=== PATIENT | male | born 1955 | race Caucasian/White ===

== ENCOUNTER 2025-08-06 07:41 | Day surgery (SDC) | payer MEDICARE, SELFPAY ==
[2025-08-02 11:06] VITALS: BMI 32.5
--- NOTE | ~2025-08-06 | XR_ITS ---
XR fluoroscopy no charge Indication: Right intra-articular SI joint steroid injection TECHNIQUE: Fluoroscopy used during Right intra-articular SI joint steroid injection performed by DrBrannon [Johnson Miranda MD] on 08/06/2025. 45 seconds of fluoroscopy with 6 fluoroscopic images captured. FINDINGS: Correlate with procedure note. IMPRESSION: Fluoroscopy used during Right intra-articular SI joint steroid injection. Reviewed, dictated and finalized at location O. H CLERK IMPRESSION: Fluoroscopy used during Right intra-articular SI joint steroid inje ction.
--- OUTSIDE RECORDS SUMMARY | 2025-08-06 08:02 | XMS_ITS | Clinical Summary ---
[facility] Address [address] [place] [address] Care Team Providers Care Inspector Air Carrier Name Role Phone Farrah Hernandez MD Unavailable [phone] Bonnie Rodriges MD Unavailable [phone] Stuart Alexander DO Unavailable [phone] Joey Cleaning DO Primary Care Provider [phone] Stuart Alexander DO Unavailable [phone] Allergies Active Allergy Reactions Criticality Noted Date Comments Nuts Anaphylaxis High 12/13/2018 Peanut Hives Medium Reaction: HIVES Penicillins Hives High 02/03/2011 Reaction: HIVES, childhood reaction Tree Nut Hives Medium Reaction: HIVES Medications metFORMIN (GLUCOPHAGE) 500 mg tablet Take 2 tablets (1,000 mg total) by mouth 2 (two) times a day with meals Active rOPINIRole XL (REQUIP XL) 6 mg tablet extended release 24 hr 24 hr tablet Take 1 tablet (6 mg total) by mouth daily. 30 tablet 6 8 Active Additional Information Patient taking differently:6 mg oralNightly, Informant: Self, Reported on 06/30/2023 albuterol HFA (PROVENTIL HFA,VENTOLIN HFA,PROAIR HFA) 90 mcg/actuation inhaler Inhale 2 puffs every 6 (six) hours as needed for wheezing Active chlorthalidone 25 mg tablet Take 0.5 tablets (12.5 mg total) by mouth daily Active metoprolol tartrate (LOPRESSOR) 25 mg immediate release tablet Take 1 tablet (25 mg total) by mouth 2 (two) times a day Active Mounjaro 10 mg/0.5 mL pen injector Take 10 mg by mouth once a week EVERY Tuesday 3 Active tadalafiL (CIALIS) 20 mg tablet Take 0.5 tablets (10 mg total) by mouth daily For ED 3 Active valsartan (DIOVAN) 80 mg tablet Take 1 tablet (80 mg total) by mouth 2 (two) times a day Active tamsulosin (FLOMAX) 0.4 mg extended release capsule Take 1 capsule (0.4 mg total) by mouth daily Active omeprazole (PriLOSEC) 20 mg capsule Take 1 capsule (20 mg total) by mouth daily 9 Active montelukast (SINGULAIR) 10 mg tablet Take 1 tablet (10 mg total) by mouth nightly Active atorvastatin (LIPITOR) 20 mg tablet Take 1 tablet (20 mg total) by mouth nightly 3 Active triamcinolone (KENALOG) 0.1 % cream Apply 1 g topically 3 (three) times a day as needed for irritation Active ascorbic acid, vitamin C, (VITAMIN C) 1,000 mg CR tablet Take 1 tablet (1,000 mg total) by mouth daily Active magnesium gluconate 200 mg tablet Take 1 tablet (200 mg total) by mouth daily Active vitamin R06-zqars acid 0.5-1 mg tablet Take 1 tablet/capsule by mouth daily Active vitamin D3-vitamin K2 25 mcg (1,000 unit)-90 mcg tablet,disinteg rating Take 1 tablet by mouth daily Active senna-docusate (PERICOLACE) 8.6-50 mg Take 1 tablet by mouth daily 30 tablet 3 Active Additional Information Patient not taking.Reported on 08/25/2023 Eliquis 5 mg tablet Take 1 tablet (5 mg total) by mouth 2 (two) times a day 4 Active gabapentin (NEURONTIN) 300 mg capsule TAKE 1 CAPSULE BY MOUTH AT BEDTIME NEEDED FOR RESTLESS LEG Active sulfamethoxazol e-trimethoprim (Bactrim DS) 800-160 mg per tablet take 1 tablet by oral route every 12 hours for 3 days 8 Active testosterone cypionate, micro (testosterone cyp, micro, bulk,) 100 % powder 0 3 Active testosterone 50 mg/5 gram (1 %) Acti ve testosterone propionate, bulk, powder 0 3 Active testosterone enanthate, bulk, 100 % powder 0 3 Active traMADoL (Ultram) 50 mg tablet take 1-2 tablets by oral route every 6 hours as needed for pain 8 Active meloxicam (MOBIC) 15 mg tabletIndicatio ns:Chronic right shoulder pain,Chronic left shoulder pain TAKE 1 TABLET BY MOUTH EVERY DAY 30 tablet 1 5 Active Active Problems Problem Noted Date Diagnosed Date Arthritis of left shoulder region 05/18/2023 Asthma 02/12/2021 Postlaminectomy syndrome, lumbar region 05/08/20 Overview (05/08/2020): Added automatically from request for surgery [id number] Polycythemia 07/14/2019 Overview (04/14/2023): Last Assessment & Plan: Chronic, uncontrolled. Hgb 19.1 on admission, asymptomatic. Hgb elevated on admission in December 2018. Suspect likely due to his KATHARINE. - Will need outpatient follow up for further evaluation Food in esophagus causing other injury, initial encounter 07/14/2019 Overview (04/14/2023): Last Assessment & Plan: Acute, uncontrolled. History most consistent with uncomplicated food impaction due to ham. Hx of prior food impaction, unknown if required dilation or strictures present. No signs of dehydration at this time. - Admit to med/surg, attending Dr. Reynolds - NPO - GI consult for endoscopic evaluation and retrieval of food bolus - MIVF Obesity 12/14/2018 Diabetes 12/14/2018 Overview (04/14/2023): Last Assessment & Plan: Chronic, patient states prediabetes diagnosis. Most recent A1C one month ago 6.1 (per patient). HgbA1c of 7.0 in hospital making T2DM diagnosis -Discussed weight loss and diet/exercise -SSI while inpatient -Start metformin BID on discharge Sleep apnea 12/14/2018 Paroxysmal atrial fibrillation 12/13/2018 Overview (04/14/2023): Last Assessment & Plan: Acute. Spontaneously resolved. Presents with SOB and chest heaviness. On admission hypertensive. Troponin negative x2. EKG shows no ST changes. CXR shows cardiomegaly. TSH WNL. Source of afib unknown but possibly related to uncontrolled hypertension vs non ischemic cardiac changes. -Admitted to telemetry -Cardiology consulted (Dr. Torres)- appreciate recs -metoprolol 25mg BID -Eliquis 5mg BID -Echo today 12/14 -Consider stress test depending on results Type 2 diabetes mellitus without complications 0 04/24/2018 Essential (primary) hypertension 04/24/2018 Overview (04/14/2023): Last Assessment & Plan: Acute. Recently diagnosed and started on losartan. BP 171/82 on admission with symptoms and signs of fluid overload with pitting edema, s/p IV lasix x1. BP improved to 139/58. -Continue losartan 25mg -Appreciate cardiology recs and begin appropriate medications pending ECHO results Presence of artificial knee joint, bilateral 05/2018 Obesity with body mass index 30 or greater 07/19 Status post total knee replacement 06/16/2017 Diabetic polyneuropathy asso ciated with type 2 diabetes mellitus 02/22/2017 Assessment & Plan (02/23/2017 11:17 AM CDT): Diabetes is improving with lifestyle modifications. Continue current treatment regimen. Regular aerobic exercise. Diabetes will be reassessed in 3 months by PCP. He is encouraged to be active and eat healthy diet. He will take gabapentin 800mg one tablet at 8 am and one at 8 pm. He likely will have improvement is symptoms by the times of his doses. Osteoarthritis of knee 06/17/2014 Chondromalacia of patella 06/17/2014 Restless legs syndrome 11/27/2013 Overview (11/19/2016): Restless leg syndrome Assessment & Plan (02/23/2017 11:18 AM CDT): He will take his ropinirole ER 6 mg dose at 3 pm each day. He will monitor his response with changing his dose time. Paresthesia 11/27/2013 Overview (11/19/2016): Paresthesia Obstructive sleep apnea syndrome 02/28/2012 Restless legs 02/02/2011 Restless legs syndrome 02/02/2011 Overview (04/14/2023): Restless leg syndrome Last Assessment & Plan: He will take his ropinirole ER 6 mg dose at 3 pm each day. He will monitor his response with changing his dose time. Surgical History Surgery Date Site/Laterality Comments JOINT REPLACEMENT Bilateral knee, 2016,2018 SPINE SURGERY 08/15/2011 - 08/14/2012 L3, L4, L5 ROTATOR CUFF REPAIR Right SPINAL CORD STIMULATOR IMPLANT COLONOSCOPY VASECTOMY TONSILLECTOMY CATARACT EXTRACTION Left NASAL ENDOSCOPY Medical History Medical History Date Comments Hx Other Medical spinal stenosis -surgery Hx Other Medical 2 kness surgery s Asthma Asthma Diabetes mellitus Atrial fibrillation (HCC) Sleep apnea not using cpap Restless leg syndrome Awareness under anesthesia Hypertension Hyperlipidemia Allergic rhinitis GERD (gastroesophageal reflux disease) Type 2 diabetes mellitus Skin cancer left hand, remov ed Scratch vanessa top of his right hand ED (erectile dysfunction) Arthritis Spinal cord stimulator status zavala s remote Family History Medical History Relation Name Comments Heart attack Father heart attack; Lung cancer Mother Cancer, lung; Relation Name Status Comments Father Mother Social History Tobacco Use Types Packs/Day Years Used Date Smoking Tobacco: Never Smokeless Tobacco: Never Alcohol Use Standard Drinks/Week Comments Not Currently 0 (1 standard drink = 0.6 oz pur e alcohol) [facility] Utilities Answer Date Recorded In the past 12 months has [employer], gas, oil, or water [employer] threatened to shut off services in your home? No 07/14/2023 Social Connection and Isolation Panel Answer Date Recorded In a typical week, how many times do you talk on the phone with family, friends, or neighbors? More than three times a week 07/14/2023 How often do you get togethe r with friends or relatives? More than three times a week 07/14/2023 How often do you attend chur ch or zoroastrian services? Never 07/14/2023 Do you belong to any clubs o r organizations such as orthodoxy groups, unions, fraternal or athletic groups, or school groups? No 07/14/2023 How often do you attend meet ings of the clubs or organizations you belong to? Never 07/14/2023 Are you , , di vorced, , never , or living with a partner? 07/14/2023 AUDIT-C Answer Date Recorded Q1: How often do you have a drink containing alc ohol? Never 07/13/2023 Q2: How many drinks containi ng alcohol do you have on a typical day when you are drinking? 1 or 2 07/13/2023 Q3: How often do you have six or more drinks on one occasion? Never 07/13/2023 Overall Financial Resource Strain (CARDIA) Answe r Date Recorded How hard is it for you to pa y for the very basics like food, housing, medical care, and heating? Not hard at all 07/14/2023 Hunger Vital Sign Answer Date Recorded Within the past 12 months, y ou worried that your food would run out before you got the money to buy more. Never true 07/14/20 23 Within the past 12 months, t he food you bought just didn't last and you didn't have money to get more. Never true 07/14/2023 PRAPARE - Transportation Answer Date Re corded In the past 12 months, has l ack of transportation kept you from medical appointments or from getting medications? No 06/17 In the past 12 months, has l ack of transportation kept you from meetings, work, or from getting things needed for daily living? No 07/14/2023 Housing Stability Vital Sign Answer Naveen e Recorded In the last 12 months, was t here a time when you were not able to pay the mortgage or rent on time? No 07/14/2023 In the last 12 months, how many places have you lived? 1 07/14/2023 In the last 12 months, was t here a time when you did not have a steady place to sleep or slept in a jail (including now)? No 07/14/2023 Personal Safety Answer Date Recorded Have you ever been in or are you currently in a harmful physical or emotional relationship or is someone making you feel afraid or unsafe? Denies 07/13/2023 Sex and Gender Information Value Date Recorded Sex Assigned at Not on file Legal Sex Male 4:57 PM MELT HOUSE CENTRIFUGAL OPERATOR Gender Identity Not on file Sexual Orientation Not on file Last Filed Vital Signs Vital Sign Reading Time Taken Comments Blood Pressure 108/48 07/14/2023 7:43 AM MELT HOUSE CENTRIFUGAL OPERATOR Pulse 73 07/14/2023 7:43 AM MELT HOUSE CENTRIFUGAL OPERATOR Temperature 36.6 C (97.9 F) 07/14/2023 7:43 AM MELT HOUSE CENTRIFUGAL OPERATOR Respiratory Rate 18 07/14/2023 7:43 AM MELT HOUSE CENTRIFUGAL OPERATOR Oxygen Saturation 95% 07/14/2023 7:43 AM MELT HOUSE CENTRIFUGAL OPERATOR Inhaled Oxygen Concentration - - Weight 111.6 kg (246 lb) 08/25/2023 10:08 AM MELT HOUSE CENTRIFUGAL OPERATOR Height 177.8 cm (5' 10) 08/25/2023 10:08 AM MELT HOUSE CENTRIFUGAL OPERATOR Body Mass Index 35.3 08/25/2023 10:08 AM MELT HOUSE CENTRIFUGAL OPERATOR Plan of Treatment Health Maintenance Due Date Last Done Comments Albumin Creatinine Ratio, Urine 1953 Colon Cancer Screening-Colonoscopy 1953 Depression Screening 1953 Hepatitis C Screening 1953 Dilated Eye Exam 1953 Foot Exam 1953 DTaP/Tdap/Td Vaccine (1 - Tdap) 1964 Hepatitis B Screening 1971 Pneumococcal vaccine 65+ (1 of 2 - PCV) 1972 Zoster Vaccine (1 of 2) 2003 Well Visit 65+ 2018 Hemoglobin A1C 12/29/2023 06/30/2023 Lipid Panel 04/12/2024 04/12/2023, 09/24/2022 Fall Risk Assessment 07/14/2024 07/14/2023 eGFR 07/14/2024 07/14/2023, 06/30/2023 Covid-19 Vaccine (3 - 2024-26 season) 04/15/202510/2020, 08/20/2020 Influenza Vaccine (#1) 2025 05/29/2019, 2016 Medical Devices Implanted Type Area Sql Server Dba Device Identifier Shelf Expiration Date Model / Serial / Lot Pins Right: Shoulder Joint Replacement Bilateral: Knee Spinal Cord Stimulater Back Description:Has remote [employer] 3660 Contrlsys Proclaim Elite 4.95cmx5.55cm 5 Implantable Pulse Tonic - [id number] - [id number] Implanted:Qty: 1 on 05/23/2020 by Farrah Hernandez MD at [facility] Left: Back [employer] [id number] 03/24/2022 3660 CONTRLSYS / [id number] / Biocomposites 620-005 Stimulan Rapid Cure Kit Paste Door To Door Fundraising Collector 5cc 12.5cc Bone Void - [id number] Implanted:Qty: 1 on 05/23/2020 by Farrah Hernandez MD at [facility] N/A: Back [employer] [id number] 12/12/2022 620 -005 / / [id number] [employer] [id number] Octrode 60cm 8 Electrode Lead Percutaneous Kit Neurostimulator - [id number] - [id number] Implanted:Qty: 1 on 05/23/2020 by Farrah Hernandez MD at [facility] N/A: Back [employer] [id number] 12/03/2021 [id number] / [id number] / [employer] 3186ans Octrode 60cm 8 Electrode Lead Percutaneous Kit Neurostimulator - [id number] - [id number] Implanted:Qty: 1 on 05/23/2020 by Farrah Hernandez MD at [facility] N/A: Back [employer] [id number] 12/03/2021 [id number] / [id number] / [employer] Simplex P Radiopaque Full Dose Cement Bone Sterile 6191-1-010 - [id number] Implanted:Qty: 1 on 07/13/2023 by Lino Hutchins MD at [facility] 09/14/2025 6191-1-010 / / [id number] [employer] Stem Humeral Shoulder Reverse Standard Size 10 Identity [id number] - [id number] Implanted:Qty: 1 on 07/13/2023 by Lino Hutchins MD at [facility] Left: Shoulder [employer] [id number] 09/27/2032 [id number] / / [id number] [employer] Head Humeral Adapter Implant Shoulder Reverse Stem Fixed Identity [id number] - [id number] Implanted:Qty: 1 on 07/13/2023 by Lino Hutchins MD at [facility] Left: Shoulder [employer] [id number] 02/19/2033 [id number] / / [id number] [employer] Stem Humeral Adapter Implant Shoulder Reverse 135 Degree Identity [id number] - [id number] Implanted:Qty: 1 on 07/13/2023 by Lino Hutchins MD at [facility] Left: Shoulder [employer] [id number] 03/28/2033 [id number] / / [id number] [employer] Head Humeral Shoulder Reverse Stem Fixed Identity 12z04co [place] [employer]ium [id number] - [id number] Implanted:Qty: 1 on 07/13/2023 by Lino Hutchins MD at [facility] [employer] [id number] 05/10/2032 [id number] / / [id number] [employer] Moodus Post Modular Component Glenoid Sterile Latex Free [id number] - [id number] Implanted:Qty: 1 on 07/13/2023 by Lino Hutchins MD at [facility] Left: Shoulder [employer] [id number] 10/22/2032 [id number] / / [id number] [employer] Moodus 3 Peg Modular Shoulder 4 Component Glenoid Sterile Latex [id number] - [id number] Implanted:Qty: 1 on 07/13/2023 by Lino Hutchins MD at [facility] Left: Shoulder [employer] [id number] 12/03/2026 [id number] / / [id number] Explanted Type Area Sql Server Dba Device Identifier Shelf Expiration Date Model / Serial / Lot [employer] Stem Humeral Adapter Implant Shoulder Reverse 135 Degree Identity [id number] - [id number] Explanted:Qty: 1 on 07/13/2023 by Lino Hutchins MD at [facility] Left: Shoulder [employer] [id number] 05/15/2032 [id number] / / [id number] Procedures Procedure Name Priority Date/Time Associated Diagnosis Comments EGFR Routine 07/14/2023 4:18 AM MELT HOUSE CENTRIFUGAL OPERATOR HEMOGLOBIN A1C Routine 06/30/2023 10:10 AM MELT HOUSE CENTRIFUGAL OPERATOR Arthritis of left shoulder region Preop testing Elevated hemoglobin A1c from Last 3 Months or Most Recently Relevant to Health Maintenance Results * eGFR (07/14/2023 4:18 AM MELT HOUSE CENTRIFUGAL OPERATOR) eGFR 59 mL/min/1. 73 m2 [facility] Comment: Interpretive Data Reference Interval Normal >/= 90 mL/min/1.73m2 Mildly decreased* 60 - 89 mL/min/1.73m2 Mildly to moderately decreased 45 - 59 mL/min/1.73m2 Moderately to severely decreased 30 - 44 mL/min/1.73m2 Severely decreased 15 - 29 mL/min/1.73m2 Kidney Failure < 15 mL/min/1.73m2 *Relative to young adult level Estimated glomerular filtration rate is determined by the 2020 CKD-EPI equation recommended by the National Kidney Foundation (A Unifying Approach to GFR Estimation: Recommendations of the NKF-ASK Task Force on Reassessing the Inclusion of Race in Diagnosing Kidney Disease, JASN 202). The CKD-EPI equation should not be used for patients with unstable renal function and has not been validated in children and those over 70. Current interpretive data was last reviewed 2021. Blood 07/14/2023 4:18 AM MELT HOUSE CENTRIFUGAL OPERATOR 07/14/2023 4:55 AM MELT HOUSE CENTRIFUGAL OPERATOR us Lino Hutchins MD LAB BLOOD ORDERABLES Final Result Performing Organization Address City/[facility] de Phone Number CARMELLA [address] [facility] [place] [address] * (ABNORMAL) Hemoglobin A1c (06/30/2023 10:10 AM MELT HOUSE CENTRIFUGAL OPERATOR) Hgb A1C 5.8(H) 4.0 - 5.6 % CARMELLA Estimated Average Glucose 120 mg/dL [facility] Comment: The ADA recommends reporting an estimated Average Glucose (eAG) with all Hemoglobin A1c results using the equation derived from a study of 507 normal and diabetic adults. Minority populations were underrepresented and children were not included. (Diabetes Care 31:1839-5332, 2008). The eAG is not equivalent to a fasting glucose. Blood 06/30/2023 10:1 0 AM MELT HOUSE CENTRIFUGAL OPERATOR 06/30/2023 10:15 AM MELT HOUSE CENTRIFUGAL OPERATOR Lino Hutchins MD LAB BLOOD ORDERABLES Final Result Performing Organization Address [facility] de Phone Number CARMELLA [address] [place] [address] from Last 3 Months or Most Recently Relevant to Health Maintenance Insurance [facility] MEDICARE MEDICARE [facility] [place] [address] [employer] MEDICARE Advance Directives For more information, please contact: [phone] * Full Code (Latest Code Status on File) Date Activated Date Inactivated Comments 07/13/2023 4:32 PM 07/14/2023 3:20 PM * Full Code Date Activated Date Inactivated Comments 05/23/2020 9:32 AM 05/23/2020 2:43 PM Care Teams Inspector Air Carrier Relationship Specialty Start Date End Date Joey Cleaning DO [address] [place], [place] [address] PCP - General Internal Medicine 06/03/23 Farrah Hernandez MD [address] [place] [address] Surgeon Anesthesiology 05/23/20 Bonnie Rodriges MD [address] [place], [place] [id number] Referring Physician Cardiovascular Disease 05/13/23 Stuart Alexander DO [address] [place], [place] [id number] Referring Physician Internal Medicine 05/13/23 Stuart Alexander DO [address] [facility] [address] [place], [place] [address] Referring Physician Internal Medicine 06/30/23
--- OUTSIDE RECORDS SUMMARY | 2025-08-06 08:02 | XMS_ITS | Encounter Summary ---
Author Organization [facility] Address [address] [place] [address] Care Team Providers Care Grinder Set Up Operator Centerless Name Role Phone Joey Cleaning DO Primary Care Provider [phone] Bonnie Rodriges MD Unavailable [phone] Encounter Details Date Type Department Care Team (Late st Contact Info) Description 12/22/2020 Abstract [facility], [address] [address] Jeffery Christian MA Social History Tobacco Use Types Packs/Day Years Used Date Smoking Tobacco: Never Smokeless Tobacco: Never Alcohol Use Standard Drinks/Week Comments No 0 (1 standard drink = 0.6 oz pur e alcohol) AUDIT-C Answer Date Recorded Frequency of Alcohol Consumption Never 12/13/2018 Average Number of Drinks Not on file 019 Frequency of Binge Drinking Not on file 08/2018 PHQ-2 Answer Date Recorded PHQ-2 Score - If the patient scores above 3, please move on to questions 3-9 0 09/09/2020 Sex and Gender Information Value Date Recorded Sex Assigned at Male 10/24/2024 9:10 AM CDT Legal Sex Male 7:37 PM CDT Gender Identity Not on file Sexual Orientation Not on file Occupation Industry Job Start Date Job End Date Not on file Not on file Not on file Not on file COVID-19 Exposure Response Date Recorded In the last month, have you been in contact with someone who was confirmed or suspected to have Coronavirus / COVID-19? No / Unsure 12/19/2020 9:56 AM CDT documented as of this encounter Functional Status * RETIRED Are you deaf or do you have serious difficulty hearing Answer Date of Assessment Author Status No 12/13/2018 11:25 PM CDT Acti ve * RETIRED Are you blind or do you have serious difficulty seeing, even when wearing glasses? Answer Date of Assessment Author Status No 12/13/2018 11:25 PM CDT Acti ve * Do you have serious difficulty walking or climbing stairs? Answer Date of Assessment Author Status No 12/13/2018 11:25 PM CDT Bonnie Lambert RN Active * Do you have difficulty dressing or bathing? Answer Date of Assessment Author Status No 12/13/2018 11:25 PM CDT Bonnie Lambert RN Active * Because of a physical, mental, or emotional condition, do you have difficulty doing errands alone such as visiting a doctor's office or shopping? Answer Date of Assessment Author Status No 12/13/2018 11:25 PM CDT Bonnie Lambert RN Active documented as of this encounter Mental Status * Because of a physical, mental, or emotional condition, do you have serious difficulty concentrating, remembering, or making decisions? Answer Entry Date Author Status No 12/13/2018 11:25 PM CDT Bonnie Lambert RN Active documented in this encounter Plan of Treatment Upcoming Encounters Date Type Department Care Team (Late st Contact Info) Description 04/18/2026 8:20 AM CDT Office Visit [facility] [address] [place] [phone] Stuart Alexander DO [facility] [address] [place] [address] documented as of this encounter Procedures Procedure Name Priority Date/Time Associated Diagnosis Comments HEMOGLOBIN, GLYCOSYLATED Routine 01/26/2024 FREE T3 Routine 01/26/2024 COMPREHENSIVE METABOLIC PANEL Routine 01/26/2024 LIPID PANEL Routine 01/26/2024 CBC, MANUAL DIFF Routine 01/26/2024 THYROXINE, FREE (FT4) Routine 01/26/2024 THYROID STIM HORMONE TSH Routine 01/26/2024 VITAMIN D, 25 OH Routine 01/26/2024 MAGNESIUM Routine 01/26/2024 HEMOGLOBIN, GLYCOSYLATED Routine 04/12/2023 FREE T3 Routine 04/12/2023 COMPREHENSIVE METABOLIC PANEL Routine 04/12/2023 LIPID PANEL Routine 04/12/2023 CBC, MANUAL DIFF Routine 04/12/2023 THYROXINE, FREE (FT4) Routine 04/12/2023 THYROID STIM HORMONE TSH Routine 04/12/2023 VITAMIN D, 25 OH Routine 04/12/2023 MAGNESIUM Routine 04/12/2023 HEMOGLOBIN, GLYCOSYLATED Routine 09/24/2022 FREE T3 Routine 09/24/2022 COMPREHENSIVE METABOLIC PANEL Routine 09/24/2022 LIPID PANEL Routine 09/24/2022 CBC, MANUAL DIFF Routine 09/24/2022 THYROXINE, FREE (FT4) Routine 09/24/2022 THYROID STIM HORMONE TSH Routine 09/24/2022 VITAMIN D, 25 OH Routine 09/24/2022 MAGNESIUM Routine 09/24/2022 HEMOGLOBIN GLYCOSYLATED A1C Routine 12/09/2021 CORTISOL Routine 08/24/2021 CBC (OUTSIDE LAB) Routine 08/24/2021 FREE T3 Routine 08/24/2021 PROSTATE SPECIFIC ANTIGEN,TOTAL Routine 08/24/2021 COMPREHENSIVE METABOLIC PANEL Routine 08/24/2021 LIPID PANEL Routine 08/24/2021 IRON BINDING TEST Routine 08/24/2021 THYROXINE, FREE (FT4) Routine 08/24/2021 THYROID STIM HORMONE TSH Routine 08/24/2021 VITAMIN D, 25 OH Routine 08/24/2021 MAGNESIUM Routine 08/24/2021 IRON Routine 08/24/2021 FERRITIN Routine 08/24/2021 FOLATE (OUTSIDE LAB) Routine 09/15/2020 CBC (OUTSIDE LAB) Routine 09/15/2020 VITAMIN B-12 Routine 09/15/2020 FREE T3 Routine 09/15/2020 COMPREHENSIVE METABOLIC PANEL Routine 09/15/2020 LIPID PANEL Routine 09/15/2020 IRON BINDING TEST Routine 09/15/2020 HEMOGLOBIN GLYCOSYLATED A1C Routine 09/15/2020 THYROXINE, FREE (FT4) Routine 09/15/2020 THYROID STIM HORMONE TSH Routine 09/15/2020 VITAMIN D, 25 OH Routine 09/15/2020 MAGNESIUM Routine 09/15/2020 IRON Routine 09/15/2020 FERRITIN Routine 09/15/2020 documented in this encounter Results * VITAMIN D, 25 OH (01/26/2024) Pathologist [facility] VITAMIN D 25 HYDROXY S/P/B 59.5 01/26/2024 Default History Genericprovider LABORATORY Final Result * COMPREHENSIVE METABOLIC PANEL (01/26/2024) Pathologist [facility] SODIUM S/P/B 139 GLUCOSE 135 mg/dL AST 29 BUN 30 CREATININE S/P/B 1.01 0.7 - 1.3 CALCIUM S/P/B 9.6 POTASSIUM S/P/B 4.1 CHLORIDE S/P/B 104 ALT 26 GFR ESTIMATE 75 Default History Genericprovider LABORATORY Final Result * LIPID PANEL (01/26/2024) Pathologist [facility] CHOLESTEROL 122.8 TRIGLYCERIDES 208 HDL 34.9 LDL (CALCULATED) 46 NON HDL CHOLESTEROL 88 Default History Genericprovider LABORATORY Final Result * CBC, MANUAL DIFF (01/26/2024) Pathologist [facility] WBC 7.98 HGB 17.8 HCT 52.1 PLT 232 [facility] History Genericprovider LABORATORY Final Result * THYROXINE, FREE (FT4) (01/26/2024) [facility] FREE T4 0.71 [facility] History Genericprovider LABORATORY Final Result * HEMOGLOBIN, GLYCOSYLATED (01/26/2024) [facility] HGB A1C 6.3 % us Default History Genericprovider LABORATORY Final Result * THYROID STIM HORMONE TSH (01/26/2024) [facility] TSH 2.35 Default History Genericprovider LABORATORY Final Result * MAGNESIUM (01/26/2024) [facility] MAGNESIUM 1.6 Default History Genericprovider LABORATORY Final Result * FREE T3 (01/26/2024) [facility] FREE T3 3.71 Default History Genericprovider LABORATORY Final Result * MAGNESIUM (04/12/2023) [facility] MAGNESIUM 1.7 04/12/2023 Default History Genericprovider LABORATORY Final Result * VITAMIN D, 25 OH (04/12/2023) [facility] VITAMIN D 25 HYDROXY S/P/B 66.1 04/12/2023 Result [facility] Result - Final * COMPREHENSIVE METABOLIC PANEL (04/12/2023) [facility] SODIUM S/P/B 136 GLUCOSE 136 mg/dL AST 23 BUN 31.7 CREATININE S/P/B 1.09 0.7 - 1.3 CALCIUM S/P/B 9.5 POTASSIUM S/P/B 4.7 CHLORIDE S/P/B 101 ALT 20 GFR ESTIMATE 68.9 Narrative Resulting Agency Comment Default History Genericprovider LABORATORY Final Result * LIPID PANEL (04/12/2023) [facility] CHOLESTEROL 93 TRIGLYCERIDES 56 HDL 39.6 LDL (CALCULATED) 42 NON HDL CHOLESTEROL 53 Narrative Resulting Agency Comment Default History Genericprovider LABORATORY Final Result * CBC, MANUAL DIFF (04/12/2023) WBC 7.77 HGB 7.6 HCT 53.1 PLT 224 Narrative Resulting Agency Comment Default History Genericprovider LABORATORY Final Result * THYROXINE, FREE (FT4) (04/12/2023) Pathologist [facility] FREE T4 0.9 Narrative Resulting Agency Comment Default History Genericprovider LABORATORY Final Result * HEMOGLOBIN, GLYCOSYLATED (04/12/2023) Pathologist [facility] HGB A1C 5.9 % Narrative Resulting Agency Comment Result [facility] Default History Genericprovider LABORATORY Final Result * THYROID STIM HORMONE, TSH (04/12/2023) Pathologist [facility] TSH 1.56 Narrative Resulting Agency Comment Result [facility] Default History Genericprovider LABORATORY Final Result * FREE T3 (04/12/2023) Pathologist [facility] FREE T3 3.89 Narrative Resulting Agency Comment Result [facility] Default History Genericprovider LABORATORY Final Result * MAGNESIUM (09/24/2022) Pathologist [facility] MAGNESIUM 1.6 09/24/2022 Result [facility] Default History Genericprovider LABORATORY Final Result * VITAMIN D, 25 OH (09/24/2022) Pathologist [facility] VITAMIN D 25 HYDROXY S/P/B 39.8 09/24/2022 Default History Genericprovider LABORATORY Final Result * COMPREHENSIVE METABOLIC PANEL (09/24/2022) [facility] SODIUM S/P/B 137 GLUCOSE 149 mg/dL AST 29.4 BUN 33.8 CREATININE S/P/B 1.18 0.7 - 1.3 CALCIUM S/P/B 10 POTASSIUM S/P/B 4.5 CHLORIDE S/P/B 100 ALT 38.7 GFR ESTIMATE 62.6 Default History Genericprovider LABORATORY Final Result * LIPID PANEL (09/24/2022) Pathologist [facility] CHOLESTEROL 109.4 TRIGLYCERIDES 115 HDL 35.5 LDL (CALCULATED) 51 NON HDL CHOLESTEROL 74 Default History Genericprovider LABORATORY Final Result * THYROXINE, FREE (FT4) (09/24/2022) Pathologist [facility] FREE T4 0.69 Default History Genericprovider LABORATORY Final Result * HEMOGLOBIN, GLYCOSYLATED (09/24/2022) Pathologist [facility] HGB A1C 8 % Result [facility] Default History Genericprovider LABORATORY Final Result * THYROID STIM HORMONE, TSH (09/24/2022) [facility] TSH 1.92 Default History Genericprovider LABORATORY Final Result * FREE T3 (09/24/2022) [facility] FREE T3 3.26 Default History Genericprovider LABORATORY Final Result * CBC, MANUAL DIFF (09/24/2022) [facility] WBC 7.73 HGB 17.8 HCT 53.9 PLT 190 Result [facility] Default History Genericprovider LABORATORY Final Result * HEMOGLOBIN, GLYCOSYLATED (12/09/2021) Pathologist [facility] HGB A1C 6.8 % 12/09/2021 Result [facility] Genericprovider LABORATORY Edited Result - Final * MAGNESIUM (08/24/2021) Pathologist [facility] MAGNESIUM 1.6 08/24/2021 [facility] Abstract LABORATORY Edited Resul t - Final * FREE T3 (08/24/2021) FREE T3 3.34 08/24/2021 us Doc [facility] Abstract LABORATORY Edited Resul t - Final * THYROXINE, FREE (FT4) (08/24/2021) FREE T4 0.68 08/24/2021 us Doc [facility] Abstract LABORATORY Final Result * THYROID STIM HORMONE, TSH (08/24/2021) TSH 3.45 08/24/2021 us Doc [facility] Abstract LABORATORY Final Result * CORTISOL (08/24/2021) CORTISOL 9.92 08/24/2021 us Doc [facility] LABORATORY Final Result * VITAMIN D, 25 OH (08/24/2021) VITAMIN D 25 HYDROXY S/P/B 43.4 08/24/2021 us Doc [facility] Abstract LABORATORY Final Result * FERRITIN (08/24/2021) FERRITIN 90.5 08/24/2021 us Doc [facility] LABORATORY Edited Resul t - Final * PROSTATE SPECIFIC ANTIGEN,TOTAL (08/24/2021) PSA 0.27 08/24/2021 us Doc [facility] LABORATORY Edited Resul t - Final * IRON BINDING TEST (08/24/2021) IRON BINDING CAPACITY 310 08/24/2021 us Doc [facility] LABORATORY Edited Resul t - Final * IRON (08/24/2021) Pathologist [facility] IRON 102 08/24/2021 us Doc [facility] LABORATORY Edited Resul t - Final * LIPID PANEL (08/24/2021) Pathologist [facility] CHOLESTEROL 155 HDL 34.3 TRIGLYCERIDES 102 NON HDL CHOLESTEROL 121 LDL (CALCULATED) 100 08/24/2021 us Doc [facility] LABORATORY Edited Resul t - Final * (ABNORMAL) COMPREHENSIVE METABOLIC PANEL (08/24/2021) Pathologist [facility] SODIUM S/P/B 136 POTASSIUM S/P/B 4.3 CO2 26 CHLORIDE S/P/B 101 GLUCOSE 153 mg/dL CALCIUM S/P/B 9.2 BUN 20.5 CREATININE S/P/B 0.95 0.7 - 1.3 EGFR AFR. AMER. 94.2(A) <=90 EGFR NON-AFR. AMER. 81.9 <=90 ALKALINE PHOSPHATASE S/P/B 39.7 ALT 68.4 AST 46.1 BILIRUBIN TOTAL S/P/B 0.72 ALBUMIN S/P/B 4.27 3.5 - 5.0 TOTAL PROTEIN S/P/B 6.59 08/24/2021 us Doc [facility] Abstract LABORATORY Edited [facility] t - Final * CBC (OUTSIDE LAB) (08/24/2021) Pathologist [facility] WBC 6.46 HGB 18.4 HCT 54.5 PLT 189 08/24/2021 us Doc [facility] Abstract LAB-OUTSIDE/ABSTRACTED Edite d Result - Final * MAGNESIUM (09/15/2020) MAGNESIUM 1.9 09/15/2020 us Doc [facility] LABORATORY Final Result * FREE T3 (09/15/2020) Pathologist [facility] FREE T3 3.18 2.1 - 4.3 09/15/2020 us Doc [facility] LABORATORY Final Result * THYROXINE, FREE (FT4) (09/15/2020) FREE T4 0.69 09/15/2020 us Doc [facility] LABORATORY Final Result * THYROID STIM HORMONE, TSH (09/15/2020) Pathologist [facility] TSH 2.62 09/15/2020 us Doc [facility] LABORATORY Final Result * VITAMIN D, 25 OH (09/15/2020) Pathologist [facility] VITAMIN D 25 HYDROXY S/P/B 38.1 09/15/2020 us Doc [facility] LABORATORY Final Result * HEMOGLOBIN, GLYCOSYLATED (09/15/2020) Pathologist [facility] HGB A1C 7.3 % 09/15/2020 us Doc [facility] LABORATORY Final Result * VITAMIN B-12 (09/15/2020) Pathologist [facility] VITAMIN B12 S/P/B 662 180 - 914 09/15/2020 us Doc [facility] LABORATORY Final Result * FOLATE (OUTSIDE LAB) (09/15/2020) Pathologist [facility] FOLATE 9.72 4 - 20 09/15/2020 us Doc [facility] Abstract LAB-OUTSIDE/ABSTRACTED Final Result * FERRITIN (09/15/2020) Pathologist [facility] FERRITIN 90.8 23.9 - 336.2 09/15/2020 us Doc [facility] LABORATORY Edited Resul t - Final * IRON BINDING TEST (09/15/2020) Pathologist [facility] IRON BINDING CAPACITY 331 250 - 400 09/15/2020 us Doc [facility] LABORATORY Edited Resul t - Final * IRON (09/15/2020) [facility] IRON 127.5 50 - 212 09/15/2020 us Doc [facility] LABORATORY Edited Resul t - Final * LIPID PANEL (09/15/2020) Pathologist [facility] CHOLESTEROL 141.5 HDL 30.9 TRIGLYCERIDES 137 NON HDL CHOLESTEROL 110.6 LDL (CALCULATED) 83 09/15/2020 us Doc [facility] LABORATORY Final Result * (ABNORMAL) COMPREHENSIVE METABOLIC PANEL (09/15/2020) Pathologist [facility] SODIUM S/P/B 137 POTASSIUM S/P/B 4.6 CO2 28 CHLORIDE S/P/B 100 GLUCOSE 139 mg/dL CALCIUM S/P/B 9.4 BUN 26.9 CREATININE S/P/B 0.97 0.7 - 1.3 EGFR AFR. AMER. 93.18(A) <=90 EGFR NON-AFR. AMER. 80.4 <=90 ALKALINE PHOSPHATASE S/P/B 42 ALT 45.7 AST 32.9 BILIRUBIN TOTAL S/P/B 0.76 ALBUMIN S/P/B 4.49 3.5 - 5.0 TOTAL PROTEIN S/P/B 7.08 GLOBULIN 2.59 09/15/2020 us Doc [facility] LABORATORY Final Result * CBC (OUTSIDE LAB) (09/15/2020) WBC 6.42 HGB 18.5 HCT 55 PLT 187 09/15/2020 us Doc [facility] Abstract LAB-OUTSIDE/ABSTRACTED Final Result documented in this encounter Visit Diagnoses Not on filedocumented in this encounter Care Teams Grinder Set Up Operator Centerless Relationship Specialty Start Date End Date Joey Cleaning DO [address] [place] [address] PCP - General INTERNAL MEDICINE 12/13/18 Bonnie Rodriges MD [facility] [address] [place] [address] [place] Template Worker INTERVENTIONAL CARDIOLOGY 01/22/19 documented as of this encounter
--- OUTSIDE RECORDS SUMMARY | 2025-08-06 08:02 | XMS_ITS | Clinical Summary ---
Author Organization [facility] Address [address] [place] [address] Phone Care Team Providers Care Violin Repairer Name Role Phone Joey Cleaning DO Primary Care Provider Allergies Active Allergy Reactions Criticality Noted Date Comments Penicillins Hives High 02/03/2011 Medications ropinirole (REQUIP) 2 mg Oral Tab Take 2 mg by mouth daily at bedtime. 1 Active budesonide-form oterol (SYMBICORT) 160-4.5 mcg/Actuation Inhalation HFAA Take 2 Puffs by inhalation 2 times daily. Active OMEPRAZOLE (PRILOSEC ORAL) Take by mouth. Active PHENYLEPHRINE/H YDROCODONE/CP (HYDROCODONE CP ORAL) Take by mouth. Activ e Social History Tobacco Use Types Packs/Day Years Used Date Smoking Tobacco: Never Smokeless Tobacco: Never Alcohol Use Standard Drinks/Week Comments Yes 0 (1 standard drink = 0.6 oz pur e alcohol) moderatly Sex and Gender Information Value Date Recorded Sex Assigned at Not on file Legal Sex Male 6:02 AM [employer] Gender Identity Not on file Sexual Orientation Not on file Last Filed Vital Signs Vital Sign Reading Time Taken Comments Blood Pressure 117/65 03/07/2011 3:51 AM CDT Pulse 85 03/07/2011 3:51 AM CDT Temperature 36.7 C (98.1 F) 03/07/2011 12:35 AM CDT Respiratory Rate 20 03/07/2011 3:51 AM CDT Oxygen Saturation 99% 03/07/2011 3:51 AM CDT Inhaled Oxygen Concentration - - Weight 120.2 kg (265 lb) 02/25/2011 12:59 PM CDT Height 180.3 cm (5' 11) 02/25/2011 12:59 PM CDT Body Mass Index 36.96 02/25/2011 12:59 PM CDT Plan of Treatment Health Maintenance Due Date Last Done Comments DTAP/TDAP/TD VACCINES (1 - Tdap) 1972 COLORECTAL SCREENING 1998 Colorectal Cancer Screening 1998 FIT-DNA Q 3 years 1998 FIT/FOBT Q 1 year 1998 Flex Sig/CT Colonography Q 5 years 1998 PNEUMOCOCCAL VACCINE 50+ YEARS (1 of 1 - PCV) 07/11/20 03 ZOSTER VACCINE (1 of 2) 2003 INFLUENZA VACCINE (#1) 2025 RSV VACCINE (60+ or ) (1 - 1-dose 75+ series) [address] [place] [address] [facility] [employer]/TRUE BLUE PPO Advance Directives For more information, please contact: [phone] * Full Code (Latest Code Status on File) Date Activated Date Inactivated Comments 02/25/2011 12:49 PM 02/26/2011 2:03 AM * Full Code Date Activated Date Inactivated Comments 02/04/2011 2:27 AM 02/04/2011 8:16 AM Care Teams Violin Repairer Relationship Specialty Start Date End Date Joey Cleaning DO PCP - General 07/31/15
--- OUTSIDE RECORDS SUMMARY | 2025-08-06 08:02 | XMS_ITS | Patient Health Record ---
Author Organization [facility] Address [address] [place] [address] Care Team Providers Care Heel Layer Name Role Phone Joey Cleaning D.O. Primary Care Provider Nya jacob Fredy Mcgee Unavailable [phone] Allergies Allergen (clinical drug ingredient) Drug/Non Drug Allergy documented on EMR Reaction Allergy Type Onset Date Status Penicillin Unknown Drug Allergy Active Reason For Referral No Information Medications Medication SIG (Take, Route, Frequency, Duration) Notes Start Date End Date Status metFORMIN HCl Active Mounjaro Active Valsartan Active Metoprolol Succinate ER Active Svewepca-Pvlargyee-Lsfakkj h 0.1 % Suspension 1-2 drops to affected toe(s) until healed topical QD; Duration: 14 days Active Dpmlcnlp-Pjoridbla-Sxvhjsk h 0.1 % Suspension 1-2 drops to affected toe(s) until healed topical QD; Duration: 14 days Active Eliquis Active rOPINIRole HCl Activ e Plan Of Treatment No Information Insurance Providers Payer Name Payer Address Payer Phone Subscriber Number Group Number Insured Name Patient Relationship to Insured Coverage Start Date Coverage End Date R [address] [address] [place] [address] [id number] Aubrey Johnson Self - patient is the insured Medical (General) History Medical History History ICD Code A-fib Arthritis Cancer Pneumonia Diabetes Surgical History Surgery Date(Month/Year)
--- OUTSIDE RECORDS SUMMARY | 2025-08-06 08:02 | XMS_ITS | Clinical Summary ---
Author Organization [facility] Address [address] [place] [address] Care Team Providers Care Chiller Operator Name Role Phone Joey Cleaning DO Primary Care Provider [phone] Bonnie Rodriges MD Unavailable [phone] Allergies Active Allergy Reactions Criticality Noted Date Comments Nuts Anaphylaxis High 12/13/2018 Penicillins Hives 12/13/2018 Tree Extract Hives High 04/10/2018 Hives and swollen throat as a child, testing showed allergy to ALL Tree nuts and mildly to peanuts Medications tadalafil (CIALIS) 10 MG tablet Take 1 tablet (10 mg total) by mouth daily as needed for Erectile Dysfunction. Active vitamin C 1000 MG tablet Take 1 tablet (1,000 mg total) by mouth daily. Active omeprazole 20 MG capsule Take 1 capsule (20 mg total) by mouth daily. 019 Active CPAP DEVICE, DME,Indications :KATHARINE (obstructive sleep apnea) Auto CPAP, 10-16 cm, use while sleeping 1 Device 1 019 Active Respiratory Therapy Supplies (FLUTTER) DeviceIndicatio ns:Cough 1 puff by Does not apply route 2 (two) times a day. 1 Device 6 021 Active tamsulosin (FLOMAX) 0.4 MG Cap Take 1 capsule (0.4 mg total) by mouth nightly at bedtime. 023 Active Testosterone Propionate Powder 023 Active metFORMIN (GLUCOPHAGE) 500 MG tablet Take 2 tablets (1,000 mg total) by mouth 2 (two) times daily. 60 tablet 023 Active montelukast (SINGULAIR) 10 MG tabletIndicatio ns:Allergic rhinitis, unspecified seasonality, unspecified trigger TAKE 1 TABLET BY MOUTH EVERYDAY AT BEDTIME 30 tablet 8 023 Active gabapentin (NEURONTIN) 300 MG capsule TAKE 1 CAPSULE BY MOUTH EVERY DAY AT BEDTIME NEEDED FOR RESTLESS LEG(S) 025 Active rOPINIRole XL (REQUIP XL) 6 MG 24 hr tablet Take 1 tablet (6 mg total) by mouth daily. 024 Active Tirzepatide (MOUNJARO) 15 MG/0.5ML Solution Pen-injector INJECT 15 MG (0.5 ML) SUBCUTANEOUSLY WEEKLY 024 Active metoprolol tartrate (LOPRESSOR) 25 MG tablet TAKE 0.5 TABLETS BY MOUTH 2 TIMES DAILY. 90 tablet 1 025 Active albuterol sulfate HFA 108 (90 Base) MCG/ACT inhalerIndicati ons:Mild intermittent asthma without complication (HHS/HCC) INHALE 2 PUFFS INTO THE LUNGS EVERY 6 HOURS NEEDED FOR WHEEZE 8.5 g 5 025 Active apixaban (ELIQUIS) 5 MG tablet TAKE 1 TABLET BY MOUTH TWICE A DAY 180 tablet 025 Active valsartan (DIOVAN) 80 MG tablet TAKE 1 TABLET BY MOUTH TWICE A DAY 180 tablet 1 025 Active valsartan (DIOVAN) 80 MG tablet TAKE 1 TABLET BY MOUTH TWICE A DAY 180 tablet 1 025 2024 Discontinued Active Problems Problem Noted Date Diagnosed Date Asthma 02/12/2021 Food in esophagus causing other injury, initial encounter 07/14/2019 Assessment & Plan (07/14/2019 9:19 AM ZONE MANAGER): Acute, uncontrolled. History most consistent with uncomplicated food impaction due to ham. Hx of prior food impaction, unknown if required dilation or strictures present. No signs of dehydration at this time. - Admit to med/surg, attending Dr. Reynolds - NPO - GI consult for endoscopic evaluation and retrieval of food bolus - MIVF Polycythemia 07/14/2019 Assessment & Plan (07/14/2019 9:22 AM ZONE MANAGER): Chronic, uncontrolled. Hgb 19.1 on admission, asymptomatic. Hgb elevated on admission in December 2018. Suspect likely due to his KATHARINE. - Will need outpatient follow up for further evaluation Essential (primary) hypertension 12/14/2018 Assessment & Plan (12/14/2018 7:49 AM CDT): Acute. Recently diagnosed and started on losartan. BP 171/82 on admission with symptoms and signs of fluid overload with pitting edema, s/p IV lasix x1. BP improved to 139/58. -Continue losartan 25mg -Appreciate cardiology recs and begin appropriate medications pending ECHO results Diabetes 12/14/2018 Assessment & Plan (12/14/2018 7:47 AM CDT): Chronic, patient states prediabetes diagnosis. Most recent A1C one month ago 6.1 (per patient). HgbA1c of 7.0 in hospital making T2DM diagnosis -Discussed weight loss and diet/exercise -SSI while inpatient -Start metformin BID on discharge Obesity 12/14/2018 Sleep apnea 12/14/2018 Paroxysmal atrial fibrillation 12/13/2018 Assessment & Plan (12/14/2018 7:45 AM CDT): Acute. Spontaneously resolved. Presents with SOB and [...] 12/14 -Consider stress test depending on results Status post total knee replacement 04/20/2018 Diabetic polyneuropathy asso ciated with type 2 diabetes mellitus 02/22/2017 Overview (02/12/2021): Last Assessment & Plan: Diabetes is improving with lifestyle modifications. Continue current treatment regimen. Regular aerobic exercise. Diabetes will be reassessed in 3 months by PCP. He is encouraged to be active and eat healthy diet. He will take gabapentin 800mg one tablet at 8 am and one at 8 pm. He likely will have improvement is symptoms by the times of his doses. Restless legs syndrome 02/02/2011 Overview (02/12/2021): Restless leg syndrome Last Assessment & Plan: He will take his ropinirole ER 6 mg dose at 3 pm each day. He will monitor his response with changing his dose time. Encounters Date Type Department Care Team Description 07/18/2025 8:18 AM ZONE MANAGER - 07/18/2025 11:59 PM [facility] Hospital Encounter [facility] [address] [place] [address] Duke Pierre, MILK DELIVERER Discharge Disposition: Home or Self Care (Routine Discharge) 07/18/2025 8:11 AM ZONE MANAGER - 07/18/2025 8:17 AM [facility] Hospital Encounter [facility] Open MRI [address] [place] [address] Duke Pierre, MILK DELIVERER Discharge Disposition: Home or Self Care (Routine Discharge) 07/18/2025 Travel 07/09/2025 Pre-Procedure Call [facility] [place]ventional [place] [address] Aneta Cronin RN 07/08/2025 Telephone [place] [facility], [facility] [address] [place] [address] Bonnie Rodriges MD Surgical Clearance from Last 3 Months Immunizations Immunization Administration Dates Next Due Flucelvax 6 Months+ (Prefilled Syringe) 05/29/20 19 MODERNA COVID-19 (12+) MRNA, LNP-S, PF, 100 MCG/ 0.5 ML DOSE 09/17/2020,08/20/2020 Family History Medical History Relation Comments Heart Attack Father Heart Disease Father from this Hypertension Father Cancer Mother Lung cancer Lung Cancer Mother Heart Attack Paternal Grandfather Relation Status Comments Father Mother Paternal Grandfather Social History Tobacco Use Types Packs/Day Years Used Date Smoking Tobacco: Never Smokeless Tobacco: Never Tobacco Cessation:Counseling Given: Yes Alcohol Use Standard Drinks/Week Comments Not Currently 3.3 (1 standard drink = 0.6 oz p ure alcohol) Rarely consume AUDIT-C Answer Date Recorded Frequency of Alcohol Consumption Never 12/13/2018 Average Number of Drinks Not on file 019 Frequency of Binge Drinking Not on file 08/2018 PHQ-2 Answer Date Recorded Patient Health Questionnaire-2 Score 0 04/18/2025 Sex and Gender Information Value Date Recorded Sex Assigned at Male 10/24/2024 9:10 AM CDT Legal Sex Male 7:37 PM CDT Gender Identity Not on file Sexual Orientation Not on file Occupation Industry Job Start Date Job End Date Not on file Not on file Not on file Not on file Last Filed Vital Signs Vital Sign Reading Time Taken Comments Blood Pressure 161/91 04/18/2025 8:31 AM CDT Pulse 72 04/18/2025 8:15 AM CDT Temperature 37.1 C (98.8 F) 12/16/2022 8:15 AM CDT Respiratory Rate 16 04/18/2025 8:15 AM CDT Oxygen Saturation 94% 04/18/2025 8:15 AM CDT ra Inhaled Oxygen Concentration - - Weight 106.6 kg (235 lb) 04/18/2025 8:15 AM CDT Height 180.3 cm (5' 11) 04/18/2025 8:15 AM CDT Body Mass Index 32.78 04/18/2025 8:15 AM CDT Plan of Treatment Upcoming Encounters Date Type Department Care Team (Late st Contact Info) Description 04/18/2026 8:20 AM CDT Office Visit [facility] Multispecialty Care - [facility] [address] [facility] [address] [place] [id number] Stuart Alexander DO [address] [facility] [address] [place] [address] Health Maintenance Due Date Last Done Comments Colorectal Cancer Screening Colonoscopy (10 Years) 1955 Kidney Health Evaluation 1955 Diabetes: Retinopathy Eye Exam 1971 Hepatitis C 1973 Annual Medicare Wellness Visit 2018 Pneumococcal Vaccine: 50+ Years (2 of 2 - PPSV23, PCV20, or PCV21) 05/20/2021 03/25/2021 Hemoglobin A1C 07/27/2024 01/26/2024, 06/15, 04/12/2023, Additional history exists Lipid Panel 01/25/2025 01/26/2024, 03/16, 09/24/2022, Additional history exists COVID-19 Vaccine ( season) 2025 02/18/2023, 06/05/2022, 11/28/2021, Additional history exists Influenza Adult (#1) 2025 05/11/2024, 05/29/2019, 06/18/2017 DTaP, Tdap and Td Vaccines (2 - Td or Tdap) 05/14/2034 05/14/2024 Zoster Vaccines Completed 02/18/2023, 03/11/2022 RSV Immunization or 60+ Years Completed 05/14/2024 PHQ-2 (Physician [place]) Completed 04/18/2025 Hepatitis A Vaccines Aged Out No long er eligible based on patient's age to complete this topic Meningococcal B Vaccine Aged Out No l onger eligible based on patient's age to complete this topic Meningococcal Vaccine Aged Out No july edelmira eligible based on patient's age to complete this topic RSV Immunizations Under 20 Months Aged Out No longer eligible based on patient's age to complete this topic Medical Devices Implanted Type Area Fleet Maintenance Manager Device Identifier Shelf Expiration Date Model / Serial / Lot Stimulator Lead Implant ( 2 Leads)- 020 Implanted:Qty : 2 on 05/23/2020 by Farrah Hernandez MD Lead Implant Spine Thoracic [employer] 3186 / / Stimulator Implant-2019 Implanted:04/2020 by Farrah Hernandez MD (Quantity not on file) Stimulator Implant N/A: Thoracic [employer] SPINE MODEL [id number] ID NUMBER [id number] / [id number] / Description:MODEL #3186 SERI AL NUMBERS [id number] AND [id number]--[id number] T 7 --[employer] TECH SUPPORT #[id number] MR CONDITIONAL AT 1.5 T ONLY, NEED REMOTE TO DO IMPEDANCE CHECK AND TURN OFF STIMULATION, FOLLOW SCAN CONDITIONS IN MOST RECENT MRI TECHNICAL MANUAL Procedures Procedure Name Priority Date/Time Associated Diagnosis Comments MRI LUMB SPINE WO CON Routine 07/18/2025 9:32 AM ZONE MANAGER Dorsalgia, unspecified Radiculopathy, lumbar region Spondylosis without myelopathy or radiculopathy, lumbar region Spinal stenosis, lumbar region without neurogenic claudication XR ABD AP+LAT STAT 07/18/2025 8:42 AM ZONE MANAGER Encounter for imaging to screen for metal prior to MRI LIPID PANEL Routine 01/26/2024 HEMOGLOBIN, GLYCOSYLATED Routine 01/26/2024 from Last 3 Months or Most Recently Relevant to Health Maintenance Results * MRI LUMB SPINE WO CON (07/18/2025 9:32 AM ZONE MANAGER) Anatomical Region Laterality Modality Spine Magnetic Resonan ce 07/22/2025 10:3 2 AM ZONE MANAGER Impressions 07/22/2025 10:36 AM ZONE MANAGER IMPRESSION: Moderate multilevel lumbar spondylosis greatest at L2-3, as described above. Ordered By: DUKE PIERRE Interpreted By: Russell Rodriguez MD, 07/22/2025 10:32 AM Narrative 07/22/2025 10:36 AM ZONE MANAGER [facility] [place] [address] Examination: MRI LUMB SPINE WO CON, 07/18/2025 9:02 AM. Technique: Multiplanar multisequence magnetic resonance images of the lumbar spine were obtained without intravenous contrast. Clinical history: Dorsalgia, radiculopathy, lumbar region, Spondylosis without myelopathy or radiculopathy, lumbar region, Spinal stenosis, lumbar region without neurogenic claudication Comparison: Abdominal radiographs 07/18/2025 Findings: There are 5 nonrib-bearing lumbar-type vertebral bodies. The lumbar vertebral bodies and facets are otherwise well aligned. There is 0.4 cm of retrolisthesis of L1 on L2. There is 0.5 cm of retrolisthesis of L2 on L3. There is 0.3 cm of retrolisthesis of L5 on S1. There is intervertebral disc height loss at T12-L1, L1-2, L2-3 and L5- S1 with endplate degenerative changes at these levels. Posterior fusion of L3-5. Partially visualized spinal cord stimulator leads extending into the T11-12 dorsal epidural fat with surrounding susceptibility (best seen on series 6 image 10). T10-11: Disc bulge with posterior endplate marginal osteophytes impress the ventral thecal sac. Moderate spinal canal stenosis. Facet joint hypertrophy. At least moderate bilateral neural foraminal stenosis. T11-12: No significant spinal canal stenosis. Facet joint hypertrophy. Mild left neural foraminal stenosis. No right neural foraminal stenosis. T12-L1: Disc bulge impressing the ventral thecal sac. Mild to moderate spinal canal stenosis. Moderate facet hypertrophy. Mild left neural foraminal stenosis. Mild to moderate right neural foraminal stenosis. L1-2: Disc bulge impressing the ventral thecal sac. Mild to moderate spinal canal stenosis. Moderate to marked facet hypertrophy. Moderate to severe right neural foraminal stenosis. Mild to moderate left neural foraminal stenosis. L2-3: Disc bulge impressing the ventral thecal sac. Severe spinal canal stenosis. Marked facet hypertrophy. Moderate left neural foraminal stenosis. Mild to moderate right neural foraminal stenosis. L3-4: Moderate facet hypertrophy. Mild spinal canal stenosis. Mild bilateral neural foraminal stenosis. L4-5: No significant spinal canal stenosis. Posterior decompression. Moderate facet hypertrophy. Moderate left neural foraminal stenosis. Mild to moderate right neural foraminal stenosis. L5-S1: No significant spinal canal stenosis. Moderate facet hypertrophy. Moderate to severe left neural foraminal stenosis. Moderate right neural foraminal stenosis. Procedure Note Russell Rodriguez MD - 07/22/2025 [address] [place] [address] Examination: MRI LUMB SPINE WO CON, 07/18/2025 9:02 AM. Technique: Multiplanar multisequence magnetic resonance images of thelumbar spine were obtained without intravenous contrast. Clinical history: Dorsalgia, radiculopathy, lumbar region, Spondylosiswithout myelopathy or radiculopathy, lumbar region, Spinal stenosis,lumbar region without neurogenic claudication Comparison: Abdominal radiographs 07/18/2025 Findings: There are 5 nonrib-bearing lumbar-type vertebral bodies. The lumbarvertebral bodies and facets are otherwise well aligned. There is 0.4 cm ofretrolisthesis of L1 on L2. There is 0.5 cm of retrolisthesis of L2 on L3.There is 0.3 cm of retrolisthesis of L5 on S1. There is intervertebraldisc height loss at T12-L1, L1-2, L2-3 and L5-S1 with endplatedegenerative changes at these levels. Posterior fusion of L3-5. Partiallyvisualized spinal cord stimulator leads extending into the T11-12 dorsalepidural fat with surrounding susceptibility (best seen on series 6 image10). T10-11: Disc bulge with posterior endplate marginal osteophytes impressthe ventral thecal sac. Moderate spinal canal stenosis. Facet jointhypertrophy. At least moderate bilateral neural foraminal stenosis. T11-12: No significant spinal canal stenosis. Facet joint hypertrophy.Mild left neural foraminal stenosis. No right neural foraminal stenosis. T12-L1: Disc bulge impressing the ventral thecal sac. Mild to moderatespinal canal stenosis. Moderate facet hypertrophy. Mild left neuralforaminal stenosis. Mild to moderate right neural foraminal stenosis. L1-2: Disc bulge impressing the ventral thecal sac. Mild to moderatespinal canal stenosis. Moderate to marked facet hypertrophy. Moderate tosevere right neural foraminal stenosis. Mild to moderate left neuralforaminal stenosis. L2-3: Disc bulge impressing the ventral thecal sac. Severe spinal canalstenosis. Marked facet hypertrophy. Moderate left neural foraminalstenosis. Mild to moderate right neural foraminal stenosis. L3-4: Moderate facet hypertrophy. Mild spinal canal stenosis. Mildbilateral neural foraminal stenosis. L4-5: No significant spinal canal stenosis. Posterior decompression.Moderate facet hypertrophy. Moderate left neural foraminal stenosis. Mildto moderate right neural foraminal stenosis. L5-S1: No significant spinal canal stenosis. Moderate facet hypertrophy.Moderate to severe left neural foraminal stenosis. Moderate right neuralforaminal stenosis. IMPRESSION: Moderate multilevel lumbar spondylosis greatest at L2-3, as describedabove. Ordered By: DUKE PIERRE Interpreted By: Russell Rodriguez MD, 07/22/2025 10:32 AM Duke Pierre MILK DELIVERER MRI Final Result * XR ABD AP+LAT (07/18/2025 8:42 AM ZONE MANAGER) Anatomical Region Laterality Modality Abdomen Radiographic Brandy ging 07/18/2025 8:51 AM ZONE MANAGER Impressions 07/18/2025 8:59 AM ZONE MANAGER IMPRESSION: 1. Implanted device in the left buttock region with intact leads entering the spinal canal at T11 level and extending superiorly to the T6 level. 2. Fracture of one of the fixation screws at L4 level. Ordered By: DUKE PIERRE Interpreted By: Paul Fleming, 07/18/2025 8:51 AM Narrative 07/18/2025 8:59 AM ZONE MANAGER [address] [address] IMAGING STUDIES: XR ABD AP+LAT DATE: 07/18/2025 8:30 AM HISTORY: Check for abandoned leads and Stimulator placement 70-year-old male. Outpatient. Planned MRI lumbar spine today. Evaluate stimulator and leads prior to MRI. COMPARISON: Chest portable 12/13/2018. DISCUSSION: AP and lateral views from the mid chest to the lower pelvis on 4 total images. Implanted stimulator device in the left buttock region with leads extending superiorly. Loop in the superficial soft tissues of the back at approximately L3-4 level with leads in extending superiorly to enter the spinal canal at approximately superior T12 level and tip of the leads at T6 level. Leads are intact. Bilateral posterior fusion rods spanning L3-L5 levels with transpedicular fixation screws at each level. On lateral views, there is fracture of one of the fixation screws near the rozina at L4 level. Grade 1 anterior listhesis of L1 relative to T12, L2 relative to L1, and L3 relative to L2. Degenerative disc disease with minimal disc space remaining and sclerotic changes and hypertrophic osteophytes at the endplates at T12-L1, L1-2, and L3-4 levels greater than at L5-S1 level. Degenerative changes at the sacroiliac joints and hips. Enthesopathy at the iliac bones. Nonobstructive bowel gas pattern. No acute opacity in the lung bases. Procedure Note Paul Fleming MD - 07/18/2025 [facility] [address] [place] [address] IMAGING STUDIES: XR ABD AP+LATDATE: 07/18/2025 8:30 AM HISTORY: Check for abandoned leads and Stimulator [id number] male. Outpatient. Planned MRI lumbar spine today. Evaluatestimulator and leads prior to MRI. COMPARISON: Chest portable 12/13/2018. DISCUSSION: AP and lateral views from the mid chest to the lower pelvis on 4 totalimages. Implanted stimulator device in the left buttock region with leadsextending superiorly. Loop in the superficial soft tissues of the back atapproximately L3- 4 level with leads in extending superiorly to enter thespinal canal at approximately superior T12 level and tip of the leads atT6 level. Leads are intact. Bilateral posterior fusion rods spanning L3-L5 levels with transpedicularfixation screws at each level. On lateral views, there is fracture of oneof the fixation screws near the rozina at L4 level. Grade 1 anteriorlisthesis of L1 relative to T12, L2 relative to L1, and L3 relative to L2.Degenerative disc disease with minimal disc space remaining and scleroticchanges and hypertrophic osteophytes at the endplates at T12-L1, L1-2, andL3-4 levels greater than at L5-S1 level. Degenerative changes at the sacroiliac joints and hips. Enthesopathy atthe iliac bones. Nonobstructive bowel gas pattern. No acute opacity in the lung bases. IMPRESSION: 1. Implanted device in the left buttock region with intact leads enteringthe spinal canal at T11 level and extending superiorly to the T6 level. 2. Fracture of one of the fixation screws at L4 level. Ordered By: DUKE PIERRE Interpreted By: Paul Fleming, 07/18/2025 8:51 AM us Duke Pierre MILK DELIVERER GENERAL IMAGING Final Result * HEMOGLOBIN, GLYCOSYLATED (01/26/2024) HGB A1C 6.3 % us Default History Genericprovider LABORATORY Final Result * LIPID PANEL (01/26/2024) CHOLESTEROL 122.8 TRIGLYCERIDES 208 HDL 34.9 LDL (CALCULATED) 46 NON HDL CHOLESTEROL 88 us Default History Genericprovider LABORATORY Final Result from Last 3 Months or Most Recently Relevant to Health Maintenance Insurance MEDICARE Advance Directives * Full Code (Latest Code Status on File) Date Activated Date Inactivated Comments 07/14/2019 8:41 AM 07/14/2019 8:32 PM * Full Code Date Activated Date Inactivated Comments 12/13/2018 11:38 PM 12/14/2018 3:40 PM * Full Code Date Activated Date Inactivated Comments 12/13/2018 11:22 PM 12/13/2018 11:38 PM Care Teams Chiller Operator Relationship Specialty Start Date End Date Joey Cleaning DO [address] [facility] [address] [place] [address] PCP - General INTERNAL MEDICINE 12/13/18 Bonnie Rodriges MD [facility]. [facility] [address] [place] [address] [place] Field Installer INTERVENTIONAL CARDIOLOGY 01/22/19
--- OUTSIDE RECORDS SUMMARY | 2025-08-06 08:02 | XMS_ITS | Encounter Summary ---
Author Organization [facility] Address [facility] [place] [address] Care Team Providers Care Office Clinician Name Role Phone Joey Cleaning DO Primary Care Provider [phone] Bonnie Rodriges MD Unavailable [phone] Encounter Details Date Type Department Care Team (Late st Contact Info) Description 02/09/2023 [employer] Message Enc [facility] Medical [facility] - [facility] [address] [place], [place] [address] GREE, [facility] Provider Air Quality Message Social History Tobacco Use Types Packs/Day Years [...] please move on to questions 3-9 0 02/12/2021 Sex and Gender Information Value Date Recorded Sex Assigned at Male 10/24/2024 9:10 AM CDT Legal Sex Male 7:37 PM CDT Gender Identity Not on file Sexual Orientation Not on file Occupation Industry Job Start Date Job End Date Not on file Not on file Not on file Not on file documented as of this encounter Functional Status [...] Description 04/18/2026 8:20 AM CDT Office Visit [facility] Medical [facility] Multispecialty Care - [facility] [address] [facility] [place] [address] Stuart Alexander DO [address] [place], [place] [id number] documented as of this encounter Visit Diagnoses Not on filedocumented in this encounter Additional Health Concerns Assessment Noted Time PHQ-9 Depression Total Score: 0 02/13/20 21 7:20 AM CDT documented as of this encounter Care Teams Office Clinician Relationship Specialty Start Date End Date Joey Cleaning DO [address] [facility] [address] [place] [address] PCP - General INTERNAL MEDICINE 12/13/18 Bonnie Rodriges MD [address] [facility] [facility] [place] [address] [employer]os[employer] Mixer Operator INTERVENTIONAL CARDIOLOGY 01/22/19 documented as of this encounter
--- OUTSIDE RECORDS SUMMARY | 2025-08-06 08:02 | XMS_ITS | Encounter Summary ---
Author Organization [facility] Address [address] [place] [address] Care Team Providers Care Dry Kiln Loader Name Role Phone Unavailable Primary Care Provider Unavailabl e Encounter Details Date Type Department Care Team (Late st Contact Info) Description 02/12/2021 Lab Requisition [facility] DermPath Lab [address] [facility] [address] [place] [id number] Brian Montiel MD [address] [place] [address] Social History Tobacco Use Types Packs/Day Years Used Date Smoking Tobacco: Never Assessed Sex and Gender Information Value Date Recorded Sex Assigned at Not on file Legal Sex Male 3:46 PM CDT Gender Identity Not on file Sexual Orientation Not on file documented as of this encounter Plan of Treatment Not on file documented as of this encounter Procedures Procedure Name Priority Date/Time Associated Diagnosis Comments DERMATOPATHOLOGY Routine 02/10/2021 12:0 0 AM CDT documented in this encounter Results * DERMATOPATHOLOGY (02/10/2021 12:00 AM CDT) Case Report Dermatopathology Report Case: [id number] Authorizing Provider: Brian Montiel MD Collected: 02/10/2021 12:00 AM Ordering Location: [facility] DermPath Lab Received: 02/12/2021 06:16 AM Pathologist: Raven Chavez MD Specimens: A) - Skin, left hand distal B) - Skin, left hand proximal 1:50 PM CDT DERMATOPATHOLOGY LABORATORY Final Diagnosis Specimen A. SKIN, left hand distal: HYPERPLASTIC (HYPERTROPHIC) ACTINIC KERATOSIS; LICHENOID (L57.0) (see microscopic description) Specimen B. 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 Path # [id number]. B: AK vs [facility]. Path # [id number]. 1 1:50 PM CDT DERMATOPATHOLOGY LABORATORY Gross Description Specimen A: Received is one formalin filled container labeled with the patient's name and designated left hand distal. The specimen consists of a shave biopsy measuring [id number]. Jar 0. Specimen B: Received is one formalin filled container labeled with the patient's name and designated left hand proximal. The specimen consists of a shave biopsy measuring [id number]. Jar 0. 1 1:50 PM CDT DERMATOPATHOLOGY LABORATORY Microscopic Description Specimen A. SKIN, left hand distal: There is hyperkeratosis alternating with parakeratosis. There is epidermal hyperplasia with disorderly maturation of keratinocytes with nuclear pleomorphism confined to the lower half of the epidermis. The dermis shows a band-like, chronic inflammatory infiltrate with occasional apoptotic keratinocytes and some basal vacuolar alteration. Specimen B. SKIN, left hand proximal: The epidermis shows parakeratosis, full thickness disorderly maturation of keratinocytes, and dyskeratotic cells. 1 1:50 PM CDT DERMATOPATHOLOGY LABORATORY Disclaimer An external and internal positive and negative controls are appropriate for the histochemical, immunohistochemical and immunofluorescence stain(s) in this case (if any), except where stated explicitly. The performance characteristics of the stain(s) cited in this report were developed and its performance characteristic determined by the Dermatopathology Laboratory at [facility], directed by Dr. Silvio Patel. These tests need not be, and therefore are not, approved by the [place] Food and Drug Administration. The tests are used for clinical purposes. Billing Codes Specimen Charges Stain Charges 94650 29456 1 1 1 1:50 PM CDT DERMATOPATHOLOGY LABORATORY Embedded Images 1 1:50 PM CDT DERMATOPATHOLOGY LABORATORY Pathology/Cytology TISSUE SPECIMEN FROM SKIN / Unknown 02/10/2021 02/12/2021 6:16 AM CDT Miscellaneous samples (specimen) TISSUE SPECIMEN FROM SKIN / Unknown 02/10/2021 02/12/2021 6:16 AM CDT us Brian Montiel MD LAB - PATHOLOGY/CYTOLOGY ORDER [facility]CO Final Result DERMATOPATHOLOGY LABORATORY [facility] - Department of Dermatology [facility] [address] [place] [address], [address] [phone] documented in this encounter Visit Diagnoses Not on filedocumented in this encounter
--- OUTSIDE RECORDS SUMMARY | 2025-08-06 08:02 | XMS_ITS | Clinical Summary ---
Author Organization [facility] Address [address] [place] [address] Care Team Providers Care Social Media Project Manager Name Role Phone Unavailable Primary Care Provider Unavailabl e Source Comments [facility],non-owned Affiliates and Associated Physician Practices is amultiple site organization consisting of ambulatory clinics and hospital sitesin [place], [place], [place] and [place]. This disclosure is being madepursuant to the Care Everywhere program and may not contain all information available regarding this patient. Last updated 18.[facility] Social History Tobacco Use Types Packs/Day Years Used Date Smoking Tobacco: Never Assessed Sex and Gender Information Value Date Recorded Sex Assigned at Not on file Legal Sex Male 3:46 PM CDT Gender Identity Not on file Sexual Orientation Not on file Plan of Treatment Health Maintenance Due Date Last Done Comments COLOGUARD (AGES 45-75) - COL ON CA SCREENING 1953 COLON MONITORING 1953 COLONOSCOPY - COLON CA SCREENING 1953 CT COLONOGRAPHY - COLON CA SCREENING 1953 Colorectal Cancer Screening 1953 FIT - COLON CA SCREENING 1953 FLEX SIG - COLON CA SCREENING 1953 LIPID TESTING 1953 HEPATITIS C SCREENING 07/07/1971 DTAP/TDAP/TD VACCINES (1 - Tdap) 1972 PNEUMOCOCCAL VACCINE 50+ (1 of 1 - PCV) 2003 ZOSTER VACCINE (1 of 2) 2003 DEPRESSION SCREENING 08/15/2024 COVID-19 VACCINE (1 - 2024-2 6 season) 2025 INFLUENZA VACCINE (#1) 2025 Respiratory Syncytial Virus (RSV) Vaccine Pt: or over 60 yrs (1 - 1-dose 75+ series) 2028 HEPATITIS B VACCINE Aged Out No longe r eligible based on patient's age to complete this topic HIB VACCINE Aged Out No longer eligi ble based on patient's age to complete this topic HPV VACCINE Aged Out No longer eligi ble based on patient's age to complete this topic MENINGOCOCCAL (Group B) VACC INE SHARED DECISION-MAKING Aged Out No longer eligibl e based on patient's age to complete this topic MENINGOCOCCAL GROUPS A/C/Y/W VACCINE Aged Out No longer eligible b ased on patient's age to complete this topic Insurance [facility]
--- OUTSIDE RECORDS SUMMARY | 2025-08-06 08:02 | XMS_ITS | Clinical Summary ---
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 Gender Identity Not on file Sexual Orientation Not on file Plan of Treatment Health Maintenance Due Date Last Done Comments Hepatitis C Virus (HCV) Screening 1955 TdaP Immunization 1953 Cologuard 1998 Colonoscopy 1998 Colorectal Cancer Screening 1998 Immunochemical Fecal Occult Blood 1998 Pneumococcal Immunization (50+ years) (1 of 1 - PCV) 2003 Zoster Immunization (1 of 2) 2003 Influenza Immunization (#1) 2025 05/29/2019, 1 08/18/2016 SARS-COV-2 Immunization ( season) 2025 11/28/2021, 04/03/2021, 09/17/2020, Additional history exists Respiratory Syncytial Virus (RSV) Immunization (Adult) (1 - 1-dose 75+ series) 2028 Hepatitis B Immunization Aged Out No longer eligible based on patient's age to complete this topic Human Papillomavirus (HPV) Immunization (No Doses Required) Completed Meningococcal Immunization (ACWY) Aged Out No longer eligible based on patient's age to complete this topic Rotavirus Immunization Aged Out No lo nger eligible based on patient's age to complete this topic Insurance ID [employer] on file Care Teams Business Administration Instructor Relationship Specialty Start Date End Date Joey Cleaning DO [address] [facility] [place] [address] [phone] (work) PCP - General Internal Medicine 07/26/19
--- NOTE | 2025-08-06 08:26 | WPDHPUPDATE1 ---
History and Physical Update Update Date/Time: 08/06/25 08:26 History and Physical has been reviewed, including an updated exam of the patient. There are NO changes in the patient's condition. Risks, benefits, and alternatives have been discussed and questions answered. Patient agrees to proceed with procedure.
--- NOTE | 2025-08-06 08:26 | W.PM.PROC2 ---
Procedure Note - Detailed Date of Procedure 08/06/25 Pre-op Diagnosis Sacroiliitis Post-op Diagnosis Same Procedure Performed Right Sacroiliac Joint Steroid Injection under Fluoroscopic Guidance and with Contrast Control. Surgeon Jonhson Miranda MD Control Electrician None Anesthesia Local Description of Procedure INFORMED CONSENT: Risks, benefits and alternatives to the procedure were discussed in detail with the patient who expressed explicit understanding and consent to proceed. Patient was informed verbally and in written form regarding the risks associated with the procedure including the low risk of serious infection, bleeding/bruising, allergic reaction, nerve or organ injury, paralysis, procedural site pain or discomfort, worsening pain and/or mobility, failure to treat and/or disfigurement. The patient expressed explicit understanding and consent to proceed. All materials required for the procedure were available prior to procedure start. Site and side were marked prior to procedure and confirmed in the presence of the patient. PROCEDURE IN DETAIL: The patient was brought to the procedural suite and placed in the prone position. Patient was made comfortable with use of pillows under the head/chest, hips and ankles. Skin overlying the injection site on the affected side(s) was prepared broadly with ChloraPrep applicator and draped in a sterile manner. Aseptic technique was used throughout. The right SI joint was identified in the AP view and contralateral oblique angulation with caudal tilt was utilized to optimize visualization of the inferior and medial joint line representing the posterior portion of the joint. Local anesthesia was established by infiltration with approximately 5 mL of 2% lidocaine via a 1-1/2 inch 27-gauge needle. A 22-gauge 3.5 inch Quincke spinal needle was advanced until the needle entered the inferior third of the joint space approximately 1cm cephalad from its most inferior point. In the AP view, 0.5 mL of Omnipaque 300 contrast medium was injected after negative aspiration for CSF, blood or other bodily fluid, showing appropriate intra-articular spread of contrast without evidence of intravascular, perineural or intrathecal placement. A 1.5 mL solution containing 10 mg of dexamethasone in 0.5% PF bupivacaine was injected after repeat negative aspiration. Appropriate spread of the injectate was confirmed with washout of previous injected contrast. No parasthesias were elicited. Needle was removed completely intact without difficulty. Images were saved and documented in the patient chart. Patient's skin was cleansed and sterile bandage applied. The patient tolerated the procedure well. The patient was transported to the recovery area in stable condition where they were observed for an appropriate amount of time prior to discharge, without evidence of complication. The patient was instructed to avoid excessive activity for the next 48 hours, including climbing and frequent use of stairs. Showers only for 48 hours. They were instructed not to drive or operate heavy machinery for 24 hours. They are to monitor for severe headaches, fevers, chills, night sweats, erythema/swelling at the site or any other signs of infection, bleeding/bruising, bowel or bladder changes as well as new pain, weakness or numbness in the upper or lower extremity. Should they notice these changes, they are instructed to call our office immediately or report directly to the nearest Emergency Department if no answer or if after posted office hours. COMPLICATIONS: None COMMENTS: None CONTRAST WASTED: 29.5 mL Omnipaque 300. Complications No immediate complications Condition Stable Disposition Same day [facility] Billing Surgery - Charge Forward: Surgery Billing
[2025-08-06 08:45] VITALS: BMI 33.0
[2025-08-06 08:46] VITALS: BP 143/81; PULSE 76; RESP 18; TEMP 36.9; O2SAT 97
[2025-08-06 09:08] VITALS: BP 146/65; PULSE 68; RESP 17; O2SAT 95
[2025-08-06] MEDS: LIDOCAINE 1% PF INJ 5 ML VIAL INFILTRATE (09:09)
[2025-08-06] MEDS: BUPivacaine HCL 0.5% 10 ML AMP INFILTRATE (09:09)
[2025-08-06] MEDS: DEXAMETHASONE SODIUM PHOSP/PF 10 MG/ML 1 ML VIAL (09:10)
[2025-08-06 09:13] VITALS: BP 150/68; PULSE 63; RESP 18; O2SAT 96
[2025-08-06 09:17] VITALS: BP 135/65; PULSE 68; RESP 18; O2SAT 97
== END 2025-08-06 09:27 | disposition home or self-care (01) ==
PROVIDERS: PCP Internal Medicine; Visit Provider Anesthesiology Pain Medicine
PROC: (CPT G0260; principal; 2025-08-06 09:15)
DX: M46.1 Sacroiliitis, not elsewhere classified (principal)
CPT/HCPCS: G0260; 27096; 99199